=== PATIENT | male | born 1980 | race African-American/Black ===

== ENCOUNTER 2018-09-23 04:32 | Emergency (ER) | payer MEDICAID ==
[~2018-09-23] VITALS: Ht 188 cm; Wt 140.6 kg
[2018-09-23 04:43] VITALS: BP 168/104
== END 2018-09-23 07:52 | disposition left against medical advice (07) ==
LOC: EDBD 04:32 → ER 04:32
DX: M25.475 Effusion, left foot (principal); Z53.21 Procedure and treatment not carried out due to patient leaving prior to being seen by health care provider
CPT/HCPCS: 73630

== ENCOUNTER 2018-09-23 09:15 | Emergency (ER) | payer MEDICAID ==
[~2018-09-23] VITALS: Ht 182.9 cm; Wt 166.0 kg
[2018-09-23 10:39] LABS: Basophils # (auto) 0.1 uL; Basophils % (auto) 0.7 % (0.0-2.0); Eosinophils # (auto) 0.2 uL; Lymphocytes # (auto) 1.6 uL; Monocytes # (auto) 0.9 uL
[2018-09-23 10:44] LABS: Eosinophils % (auto) 2.2 % (0.0-7.0); Hematocrit 41.2 % (41.0-53.0); Lymphocytes % (auto) 23.2 % (10.0-50.0); Mean Corpuscular Hemoglobin 22.7 pg (28.0-32.0); Mean Corpuscular Hgb Conc. 31.5 g/dL (32.0-36.0); Mean Corpuscular Volume 72.2 fL (80.0-100.0); Monocytes % (auto) 12.2 % (0.0-12.0); Neutrophils # (auto) 4.4 uL; Neutrophils % (auto) 61.7 % (37.0-80.0); Nucleated Red Blood Cells % 0.2 %; Platelet Count (auto) 171 10^3/uL (140-450); Red Blood Cells 5.71 10^6/uL (4.5-5.90); Red Cell Distribution Width 16.1 % (11.8-14.3); White Blood Cell 7.1 10^3/uL (4.4-10.8)
[2018-09-23 11:04] LABS: Albumin 3.3 g/dL (3.4-5.0); BUN/Creatinine Ratio 12.7; Calcium 8.8 mg/dL (8.5-10.1); Potassium 4.4 mmol/L (3.5-5.1)
[2018-09-23 11:05] LABS: Bilirubin, Total 0.3 mg/dL (0.2-1.0); Total Protein 7.5 g/dL (6.4-8.2)
[2018-09-23 11:13] VITALS: BP 139/71
[2018-09-23 11:43] LABS: Urine Bacteria NONE SEEN /hpf (None Seen); Urine Blood Negative /uL (Negative); Urine Specific Gravity 1.023 (1.001-1.035); Urine WBC None Seen /hpf (0 - 3)
[2018-09-23 12:01] LABS: Alcohol, Urine < 3.0 mg/dL (0-5); Amphetamine Screen, Urine NEGATIVE (NEGATIVE); Barbiturate Scree,Urine NEGATIVE (NEGATIVE); Benzodiazephine Screen, Urine NEGATIVE (NEGATIVE); Cannabinoid Screen, Urine NEGATIVE (NEGATIVE); Cocaine Screen, Urine NEGATIVE (NEGATIVE); Opiate Scree,Urine NEGATIVE (NEGATIVE); Phencyclidine Screen, Urine NEGATIVE (NEGATIVE)
== END 2018-09-23 12:57 | disposition left against medical advice (07) ==
LOC: ER 09:23
DX: G93.41 Metabolic encephalopathy (principal); M79.89 Other specified soft tissue disorders; R41.0 Disorientation, unspecified
CPT/HCPCS: 36415; 70450; 80053; 80307; 81001; 83880; 85025; 93005; 93971

== ENCOUNTER 2018-10-12 14:56 | Emergency (ER) | payer MEDICAID ==
[~2018-10-12] VITALS: Ht 182.9 cm; Wt 136.1 kg
[2018-10-12 15:03] VITALS: BP 146/91
[2018-10-12 18:16] LABS: Eosinophils # (auto) 0.3 uL; Eosinophils % (auto) 3.4 % (0.0-7.0); Monocytes # (auto) 0.8 uL; Monocytes % (auto) 10.9 % (0.0-12.0); Neutrophils # (auto) 3.6 uL; White Blood Cell 7.5 10^3/uL (4.4-10.8)
[2018-10-12 18:17] LABS: Urine Bacteria NONE SEEN /hpf (None Seen); Urine Blood Negative /uL (Negative); Urine Specific Gravity 1.004 (1.001-1.035); Urine WBC <1 /hpf (0 - 3)
[2018-10-12 18:18] LABS: Basophils # (auto) 0 uL; Basophils % (auto) 0.2 % (0.0-2.0); Hematocrit 45.7 % (41.0-53.0); Hemoglobin 14.7 g/dL (13.5-17.5); Lymphocytes # (auto) 2.9 uL; Mean Corpuscular Hemoglobin 23.2 pg (28.0-32.0); Mean Corpuscular Hgb Conc. 32.2 g/dL (32.0-36.0); Mean Corpuscular Volume 72.2 fL (80.0-100.0); Neutrophils % (auto) 47.5 % (37.0-80.0); Nucleated Red Blood Cells % 0.2 %; Platelet Count (auto) 209 10^3/uL (140-450); Red Blood Cells 6.33 10^6/uL (4.5-5.90); Red Cell Distribution Width 15.9 % (11.8-14.3)
[2018-10-12 18:41] LABS: Alcohol, Urine < 3.0 mg/dL (0-5); Amphetamine Screen, Urine NEGATIVE (NEGATIVE); Barbiturate Scree,Urine NEGATIVE (NEGATIVE); Benzodiazephine Screen, Urine NEGATIVE (NEGATIVE); Cannabinoid Screen, Urine NEGATIVE (NEGATIVE); Cocaine Screen, Urine NEGATIVE (NEGATIVE); Opiate Scree,Urine NEGATIVE (NEGATIVE); Phencyclidine Screen, Urine NEGATIVE (NEGATIVE)
[2018-10-12 18:49] LABS: Albumin 3.7 g/dL (3.4-5.0); BUN/Creatinine Ratio 11.5; Calcium 8.8 mg/dL (8.5-10.1); Potassium 4.3 mmol/L (3.5-5.1)
[2018-10-12 18:51] LABS: Bilirubin, Total 0.3 mg/dL (0.2-1.0); Total Protein 8.2 g/dL (6.4-8.2)
[2018-10-12 19:28] LABS: Salicylate < 1.7 mg/dL (2.8-20.0)
[2018-10-12 19:33] LABS: Acetaminophen < 2.0 ug/mL (10-30)
== END 2018-10-13 00:55 | disposition home or self-care (01) ==
LOC: EDUNIT# 14:56 → ER 14:56 → EDBD 14:56 → ER 10-13 00:55
DX: Z91.19 Patient's noncompliance with other medical treatment and regimen (principal); R41.0 Disorientation, unspecified; E66.01 Morbid (severe) obesity due to excess calories; Z68.41 Body mass index [BMI] 40.0-44.9, adult
CPT/HCPCS: 36415; 80053; 80307; 80329; 81001; 85025